=== PATIENT | male | born 1970 | race Two or more races ===

== ENCOUNTER 2021-03-11 09:10 | Emergency (ER) | payer BC, OTHER ==
[~2021-03-11] VITALS: Ht 180.3 cm; Wt 97.5 kg
--- NOTE | 2021-03-11 09:24 | NUR ---
BIBS C/O L CALF PAIN SINCE TUESDAY. PT ADMITS SITTING FOR PROLONGED PERIODS OF TIME. REPORTS PAIUN RADIATES FROM L CALF TO ABOVE L KNEE. DENIES PLEURISTIC CHEST PAIN. AAOX4, BREATHING EVEN AND UNLABORED, PULSES 2+ BILATERALLY. NO L LEG SWELLING. NO ERYTHEMA. ASSISTED TO ER BED 1.
--- NOTE | 2021-03-11 09:33 | NUR ---
DR PERSAUD AT BEDSIDE
--- NOTE | 2021-03-11 10:04 | NUR ---
ULTRASOUND AT BEDSIDE
[2021-03-11 11:07] VITALS: BP 125/89
--- NOTE | 2021-03-11 11:07 | NUR ---
Patient discharged to home in stable condition. Written and verbal after care instructions given. Patient verbalizes understanding of instruction.
== END 2021-03-11 11:07 | disposition home or self-care (01) ==
LOC: ER 09:15
DX: M79.662 Pain in left lower leg (principal); J45.909 Unspecified asthma, uncomplicated; E03.9 Hypothyroidism, unspecified
CPT/HCPCS: 93971-TC